=== PATIENT | male | born 1965 | race Caucasian/White ===

== ENCOUNTER 2017-08-07 06:48 | Day surgery (SDC) | payer OTHER ==
[~2017-08-07] VITALS: Ht 177.8 cm; Wt 99.8 kg
[2017-08-07 07:23] VITALS: BP 178/111
[2017-08-07 09:04] VITALS: BP 130/88
== END 2017-08-07 09:20 | disposition home or self-care (01) ==
LOC: DS 06:48
PROVIDERS: Internal Medicine Gastroenterology
PROC: 0DB68ZX Excision of Stomach, Via Natural or Artificial Opening Endoscopic, Diagnostic (ICD-10-PCS; principal; 2017-08-07 07:30)
DX: A04.8 Other specified bacterial intestinal infections (principal); B96.81 Helicobacter pylori [H. pylori] as the cause of diseases classified elsewhere
CPT/HCPCS: 43235; J1200; J1610; J2250; J2310; J3010; J3490

== ENCOUNTER 2017-12-15 08:19 | Day surgery (SDC) | payer OTHER ==
[~2017-12-15] VITALS: Ht 177.8 cm; Wt 101.6 kg
[2017-12-15 08:46] VITALS: BP 155/79
[2017-12-15 11:18] VITALS: BP 172/100
== END 2017-12-15 11:10 | disposition home or self-care (01) ==
LOC: GI 08:19 → OR 11:15 → GI 12:30
PROVIDERS: Internal Medicine Gastroenterology
PROC: 0DJD8ZZ Inspection of Lower Intestinal Tract, Via Natural or Artificial Opening Endoscopic (ICD-10-PCS; principal; 2017-12-15 10:45)
DX: Z12.11 Encounter for screening for malignant neoplasm of colon (principal); K64.8 Other hemorrhoids
CPT/HCPCS: 45378; J1200; J1610; J2250; J2310; J3010; J3490